=== PATIENT | male | born 1965 | race Caucasian/White ===

== ENCOUNTER 2022-03-29 01:55 | Observation (INO) | payer BC ==
--- NOTE | 2022-03-29 02:58 | ED ---
ENT HPI - General Chief complaint: ENT Stated complaint: ear pain Time Seen by Provider: 03/29/22 02:54 Source: patient, RN notes reviewed, old records reviewed Mode of arrival: ambulatory - History of Present Illness Initial comments: This is a 56-year-old male DF for evaluation. Patient presents with severe right ear pain. Patient is unable to hear out of his right ear with history of difficulty hearing out of both ears. Patient is been on different antibiotics and an outpatient basis with symptoms progressing severely. Patient states his symptoms just do not seem to be able to get better. Pain is getting worse. Although no fevers MD complaint: tooth pain, ear pain (left) -: days(s) Location: L ear Severity: severe Severity scale (1-10): 3 Quality: stabbing, aching, crushing, sharp Consistency: constant Improves with: none Worsens with: none Context- Ear: recent illness, recent swimming Associated Symptoms: fever - Related Data Home Medications Medication Instructions Recorded Confirmed Ascorbic Acid [Vitamin C] 1,000 mg PO DAILY 03/29/22 03/29/22 Cholecalciferol [Vitamin D3 (25 50 mcg PO DAILY 03/29/22 03/29/22 Mcg = 1000 Iu)] Cyanocobalamin (Vitamin B-12) 1,000 mcg PO DAILY 03/29/22 03/29/22 [Vitamin B-12] Glucos Sul 2Kcl/MSM/Chond/C/Mn 1 cap PO DAILY 03/29/22 03/29/22 [Glucosamine Chondroitin Cap] Hydrocortisone Cream 1 applic TOPICAL BID PRN 03/29/22 03/29/22 [Hydrocortisone 1% Cream] Multivitamins, Thera [Multivitamin 1 tab PO DAILY 03/29/22 03/29/22 (formulary)] Omeprazole Magnesium [PriLOSEC OTC] 20 mg PO DAILY 03/29/22 03/29/22 Pregabalin [Lyrica] 50 mg PO BID@1400,2100 03/29/22 03/29/22 Pregabalin [Lyrica] 100 mg PO DAILY@0700 03/29/22 03/29/22 Pyridoxine HCl (Vitamin B6) 100 mg PO DAILY 03/29/22 03/29/22 [Vitamin B-6] Simvastatin [Zocor] 40 mg PO HS 03/29/22 03/29/22 lisinopriL 40 mg PO DAILY 03/29/22 03/29/22 Previous Rx's Medication Instructions Recorded Canagliflozin [Invokana] 100 mg PO DAILY 30 Days #30 tab 03/31/22 Ciprofloxacin HCl [Cipro] 750 mg PO Q12H 14 Days #28 tab 03/31/22 Ciprofloxacin-Dexameth [Ciprodex 4 drops RIGHT EAR TID 14 Days #250 03/31/22 Otic Susp] ml Allergies Allergy/AdvReac Type Severity Reaction Status Date / Time No Known Allergies Allergy Verified 03/29/22 11:19 Review of Systems ROS Statement: Those systems with pertinent positive or pertinent negative responses have been documented in the HPI. ROS Other: All systems not noted in ROS Statement are negative. Past Medical History Past Medical History: Diabetes Mellitus, GERD/Reflux, Hyperlipidemia, Hypertension Additional Past Medical History / Comment(s): neuropathy History of Any Multi-Drug Resistant Organisms: None Reported Past Surgical History: No Surgical Hx Reported Past Psychological History: No Psychological Hx Reported Past Alcohol Use History: Daily Past Drug Use History: None Reported General Exam General appearance: alert, in no apparent distress Head exam: Present: atraumatic, normocephalic, normal inspection Eye exam: Present: normal appearance, PERRL, EOMI. Absent: scleral icterus, conjunctival injection, periorbital swelling ENT exam: Present: normal exam, mucous membranes moist Neck exam: Present: normal inspection. Absent: tenderness, meningismus, lymphadenopathy Respiratory exam: Present: normal lung sounds bilaterally. Absent: respiratory distress, wheezes, rales, rhonchi, stridor Cardiovascular Exam: Present: regular rate, normal rhythm, normal heart sounds. Absent: systolic murmur, diastolic murmur, rubs, gallop, clicks GI/Abdominal exam: Present: soft, normal bowel sounds. Absent: distended, tenderness, guarding, rebound, rigid Extremities exam: Present: normal inspection, full ROM, normal capillary refill. Absent: tenderness, pedal edema, joint swelling, calf tenderness Back exam: Present: normal inspection Neurological exam: Present: alert, oriented X3, CN II-XII intact Psychiatric exam: Present: normal affect, normal mood Skin exam: Present: warm, dry, intact, normal color. Absent: rash Course Vital Signs 03/29/22 03/29/22 02:07 06:52 Temperature 97.7 F 97.6 F Pulse Rate 79 Pulse Rate [ 75 Pulse Oximetery ] Respiratory 16 18 Rate Blood Pressure 152/91 Blood Pressure 170/91 [Right Arm] O2 Sat by Pulse 99 97 Oximetry - Reevaluation(s) Reevaluation #1: 03/29/22 Medical record is reviewed Patient symptoms are improved here in the ER Patient informed results and questions answered - Consultations Consultation #1: Spoke with ENT Dr. Ferreira who will see patient in the ER Consultation #2: Spoke with ag who agreed to admit the patient Medical Decision Making - Medical Decision Making 56 male with severe ear pain. Patient has significant otitis externa malignant. Patient is diabetic with place on antibiotics and will be admitted for ENT to evaluate - Lab Data Result diagrams: 03/30/22 05:51 03/30/22 05:51 Lab Results 03/29/22 03/29/22 03/29/22 Range/Units 04:23 04:23 04:23 WBC 7.4 (3.8-10.6) k/uL RBC 4.31 (4.30-5.90) m/uL Hgb 13.9 (13.0-17.5) gm/dL Hct 40.5 (39.0-53.0) % MCV 94.1 (80.0-100.0) fL MCH 32.2 (25.0-35.0) pg MCHC 34.2 (31.0-37.0) g/dL RDW 12.1 (11.5-15.5) % Plt Count 268 (150-450) k/uL MPV 8.4 Neutrophils % 47 % Lymphocytes % 41 % Monocytes % 5 % Eosinophils % 2 % Basophils % 1 % Neutrophils # 3.5 (1.3-7.7) k/uL Lymphocytes # 3.0 (1.0-4.8) k/uL Monocytes # 0.4 (0-1.0) k/uL Eosinophils # 0.2 (0-0.7) k/uL Basophils # 0.1 (0-0.2) k/uL ESR (0-15) mm/hr PT 10.4 (9.0-12.0) sec INR 1.0 (<1.2) APTT 24.9 (22.0-30.0) sec Sodium 140 (137-145) mmol/L Potassium 4.2 (3.5-5.1) mmol/L Chloride 106 (98-107) mmol/L Carbon Dioxide 25 (22-30) mmol/L Anion Gap 9 mmol/L BUN 19 (9-20) mg/dL Creatinine 0.89 (0.66-1.25) mg/dL Est GFR (CKD-EPI)AfAm >90 (>60 ml/min/1.73 sqM) Est GFR (CKD-EPI)NonAf >90 (>60 ml/min/1.73 sqM) Glucose 108 H (74-99) mg/dL Calcium 9.2 (8.4-10.2) mg/dL Total Bilirubin 0.3 (0.2-1.3) mg/dL AST 27 (17-59) U/L ALT 24 (4-49) U/L Alkaline Phosphatase 72 (38-126) U/L Troponin I (0.000-0.034) ng/mL C-Reactive Protein (<1.0) mg/dL Total Protein 6.7 (6.3-8.2) g/dL Albumin 4.5 (3.5-5.0) g/dL 03/29/22 03/29/22 03/29/22 Range/Units 04:23 04:23 04:23 WBC (3.8-10.6) k/uL RBC (4.30-5.90) m/uL Hgb (13.0-17.5) gm/dL Hct (39.0-53.0) % MCV (80.0-100.0) fL MCH (25.0-35.0) pg MCHC (31.0-37.0) g/dL RDW (11.5-15.5) % Plt Count (150-450) k/uL MPV Neutrophils % % Lymphocytes % % Monocytes % % Eosinophils % % Basophils % % Neutrophils # (1.3-7.7) k/uL Lymphocytes # (1.0-4.8) k/uL Monocytes # (0-1.0) k/uL Eosinophils # (0-0.7) k/uL Basophils # (0-0.2) k/uL ESR 10 (0-15) mm/hr PT (9.0-12.0) sec INR (<1.2) APTT (22.0-30.0) sec Sodium (137-145) mmol/L Potassium (3.5-5.1) mmol/L Chloride (98-107) mmol/L Carbon Dioxide (22-30) mmol/L Anion Gap mmol/L BUN (9-20) mg/dL Creatinine (0.66-1.25) mg/dL Est GFR (CKD-EPI)AfAm (>60 ml/min/1.73 sqM) Est GFR (CKD-EPI)NonAf (>60 ml/min/1.73 sqM) Glucose (74-99) mg/dL Calcium (8.4-10.2) mg/dL Total Bilirubin (0.2-1.3) mg/dL AST (17-59) U/L ALT (4-49) U/L Alkaline Phosphatase (38-126) U/L Troponin I <0.012 (0.000-0.034) ng/mL C-Reactive Protein 1.5 H (<1.0) mg/dL Total Protein (6.3-8.2) g/dL Albumin (3.5-5.0) g/dL Critical Care Time Critical Care Time: Yes Total Critical Care Time: 31 Disposition Clinical Impression: Otitis externa, Otitis media, Right otitis externa, Right otitis media, Malignant otitis externa Disposition: ADMITTED IP TO THIS HOSP Condition: Good Is patient prescribed a controlled substance at d/c from ED?: No Time of Disposition: 05:20
[2022-03-29] MEDS ORDERED: CIPROFLOXACIN-DEXAMETH 0.3-0.1% DROPS 7.5 ML BTL RIGHT EAR STA (03:26)
[2022-03-29] MEDS ORDERED: LEVOFLOXACIN 500MG-D5W PMX 500 MG in DEXTROSE/WATER 1 100ML.BAG IVPB STA (03:26)
[2022-03-29] MEDS ORDERED: PIPERACILLIN-TAZOBACTAM 3.375 GM in SODIUM CHLORIDE 0.9% 100 ML IVPB STA (03:26)
[2022-03-29] MEDS ORDERED: SODIUM CHLORIDE 0.9% 1,000 ML IV STA ×2 (03:26)
[2022-03-29 04:42] LABS: Basophils # (A) 0.1 k/uL (0-0.2); Basophils % (A) 1 %; Eosinophils # (A) 0.2 k/uL (0-0.7); Eosinophils % (A) 2 %; HCT 40.5 % (39.0-53.0); HGB 13.9 gm/dL (13.0-17.5); Lymphocytes % (A) 41 %; MCH 32.2 pg (25.0-35.0); MCHC 34.2 g/dL (31.0-37.0); MCV 94.1 fL (80.0-100.0); Mean Platelet Volume 8.4; Monocytes # (A) 0.4 k/uL (0-1.0); Monocytes % (A) 5 %; Neutrophils # (A) 3.5 k/uL (1.3-7.7); Neutrophils % (A) 47 %; Platelet Count 268 k/uL (150-450); RBC 4.31 m/uL (4.30-5.90); RDW 12.1 % (11.5-15.5); WBC 7.4 k/uL (3.8-10.6)
--- NOTE | 2022-03-29 04:43 | CT ---
EXAMINATION TYPE: CT iac wo con DATE OF EXAM: 03/29/2022 COMPARISON: CT brain 06/12/2019 HISTORY: Rt ear pain since last Friday CT DLP: 295.5 mGycm Automated exposure control for dose reduction was used. Images obtained from the mid temporal bones through the skull base without contrast. There is lumbarization of the mastoid sinuses. There is extensive opacification of the right external auditory canal. There is mucosal thickening to a mild extent in the middle ear cavity. There is some opacification of the epitympanic recess on the right side. There is opacification of the right exter nal auditory canal up to the tympanic membrane. I see no focal bone destruction. No evidence of a posterior fossa mass. Internal auditory canals are not enlarged. No sign of cerebellopontine angle mass. Temporomandibular joints are intact. IMPRESSION: There is significant opacification of the right external auditory canal which appears new compared to old exam. There is also new mucosal thickening in the middle ear cavity and this is consistent with otitis interna and otitis externa. No focal bone destruction. There is clearing of the mild sphenoid sinusitis compared to old exam.
[2022-03-29 04:54] LABS: ALT 24 U/L (4-49); AST 27 U/L (17-59); African American GFR (CKD) >90 (>60 ml/min/1.73 sqM); Albumin 4.5 g/dL (3.5-5.0); Alkaline Phosphatase 72 U/L (38-126); Anion Gap 9 mmol/L; Blood Urea Nitrogen 19 mg/dL (9-20); Calcium 9.2 mg/dL (8.4-10.2); Carbon Dioxide 25 mmol/L (22-30); Chloride 106 mmol/L (98-107); Glucose 108 mg/dL (74-99); Non-African American GFR(CKD) >90 (>60 ml/min/1.73 sqM); Potassium 4.2 mmol/L (3.5-5.1); Sodium 140 mmol/L (137-145); Total Bilirubin 0.3 mg/dL (0.2-1.3); Total Protein 6.7 g/dL (6.3-8.2)
[2022-03-29 04:57] LABS: Partial Thromboplastin Time 24.9 sec (22.0-30.0); Prothrombin Time 10.4 sec (9.0-12.0)
[2022-03-29] MEDS ORDERED: MORPHINE SULFATE 4 MG/ML SYRINGE IV PRN (05:10)
[2022-03-29] MEDS ORDERED: MORPHINE SULFATE 4 MG/ML SYRINGE IVP STA (05:10)
[2022-03-29] MEDS ORDERED: NALOXONE 0.4 MG/ML 1 ML VIAL IV PRN ×2 (05:12→15:29)
[2022-03-29] MEDS ORDERED: ONDANSETRON 4 MG/2 ML VIAL IVP PRN (05:12)
--- NOTE | 2022-03-29 09:57 | P.HPIM ---
History of Present Illness H&P Date: 03/29/22 Chief Complaint: earache 56-year-old male with history of hearing loss, diabetes type 2, peripheral neuropathy, hypertension and hyperlipidemia presented to the emergency depa rtment because of a one-week history of worsening right ear pain. He normally wears hearing aids and without them he only has 10% of his hearing. States he can't hear anything out of his right ear. Also noticed minimal drainage from the right ear. Denied fevers or chills. He had a zoom appointment with his PCP who prescribed an antibiotic for him which he took but his symptoms got worse. No nausea or vomiting or other systemic symptoms. This did not happen in the past to him. In the ER all his labs were ok. He was not febrile. Had CT of the ear which showed new significant opacification of the right external auditory canal as well as new mucosal thickening in the middle ear cavity. He was started on zosyn and levaquin and was subsequently admitted. Review of Systems Complete review of system performed pertinent positives per HPI otherwise negative. Past Medical History Past Medical History: Diabetes Mellitus, GERD/Reflux, Hyperlipidemia, Hypertension Additional Past Medical History / Comment(s): neuropathy History of Any Multi-Drug Resistant Organisms: None Reported Past Surgical History: No Surgical Hx Reported Past Psychological History: No Psychological Hx Reported Past Alcohol Use History: Daily Past Drug Use History: None Reported Medications and Allergies Home Medications Medication Instructions Recorded Confirmed Type Amoxicillin/Potassium Clav 1 each PO Q12HR #20 tab 06/12/19 Rx [Augmentin 875-125 Tablet] Allergies Allergy/AdvReac Type Severity Reaction Status Date / Time No Known Allergies Allergy Verified 03/29/22 02:10 Physical Exam Vitals: Vital Signs Temp Pulse Pulse Resp BP BP Pulse Ox 03/29/22 06:52 97.6 F 75 18 170/91 97 03/29/22 02:07 97.7 F 79 16 152/91 99 Intake and Output 03/28/22 03/29/22 03/29/22 22:59 06:59 14:59 Intake Total 480 Balance 480 Intake: Oral 480 Other: # Voids 1 Weight 108.862 kg Constitutional: No acute distress, conversant, pleasant Eyes:Anicteric sclerae, moist conjunctiva, no lid-lag, PERRLA, ENMT: There is erythema and yellow drainage noted in the right ear canal. Oropharynx clear, no erythema, exudates Neck: Supple, FROM, no masses, or JVD, No carotid bruits, No thyromegaly Lungs: Clear to auscultation, Clear to percussion, Normal respiratory effort, no accessory muscle use Cardiovascular: Heart regular in rate and rhythm, No murmurs, gallops, or rubs, No peripheral edema Abdominal: Soft, Nontender, no guarding, rebound or rigidity, Normoactive bowel sounds, No hepatomegaly, No splenomegaly, No palpable mass Skin: Normal temperature, tone, texture, turgor, no induration, No subcutaneous nodules, No rash, lesions, No ulcers Extremities: No digital cyanosis, No clubbing, Pedal pulses intact and symmetrical, Radial pulses intact and symmetrical, No calf tenderness Psychiatric: Alert and oriented to person, place and time, appropriate affect, intact judgement Neuro: Muscles Strength 5/5 in all 4 extremities, Sensation to light touch grossly present throughout, Cranial nerves II-XII grossly intact, no focal sensory deficits Results CBC & Chem 7: 03/29/22 04:23 03/29/22 04:23 Labs: Abnormal Lab Results - Last 24 Hours (Table) 03/29/22 03/29/22 Range/Units 04:23 04:23 Glucose 108 H (74-99) mg/dL C-Reactive Protein 1.5 H (<1.0) mg/dL Assessment and Plan Plan: Right otitis externa Right otitis media Continue with zosyn and levaquin IV fluids Pain control with tylenol, toradol and opiates DM2 Hold metformin SSI with blood sugars check every before meals and at bedtime Chronic Hypertension Peripheral neuropathy Hyperlipidemia All stable Resume meds Admit to inpatient, expected length of stay more than 2 midnights
[2022-03-29] MEDS ORDERED: ACETAMINOPHEN TAB 325 MG TAB PO SCH (10:00)
[2022-03-29] MEDS: KETOROLAC 15 MG/ML 1 ML VIAL IVP SCH ×3 (10:26→22:10)
[2022-03-29] MEDS: PIPERACILLIN-TAZOBACTAM 3.375 GM in SODIUM CHLORIDE 0.9% 100 ML IVPB SCH ×2 (10:27→20:35)
[2022-03-29] MEDS ORDERED: DEXTROSE 50% SYRINGE 50 ML IVP PRN ×2 (12:00)
[2022-03-29] MEDS: lisinopriL 20 MG TAB PO SCH (12:08)
[2022-03-29] MEDS ORDERED: INSULIN ASPART (NovoLOG) 100 UNIT/ML VIAL SQ SCH (12:30)
[2022-03-29] MEDS: INSULIN ASPART (NovoLOG) 100 UNIT/ML VIAL SQ SCH ×3 (13:26→21:07)
[2022-03-29] MEDS: PREGABALIN 50 MG CAP PO SCH ×2 (14:14→20:36)
[2022-03-29] MEDS ORDERED: TEMAZEPAM 30 MG CAP PO PRN (15:28)
[2022-03-29] MEDS: CIPROFLOXACIN-DEXAMETH 0.3-0.1% DROPS 7.5 ML BTL RIGHT EAR SCH ×2 (15:49→22:10)
[2022-03-29] MEDS: HYDROmorphone PCA 10 MG/50 ML BAG IV PRN (17:09)
[2022-03-29 17:53] LABS: Glucose,Whole Blood 141 mg/dL (70-110)
[2022-03-29] MEDS: ACETAMINOPHEN IV (For NPO) 1,000 MG in EMPTY BAG 1 BAG IVPB SCH (18:19)
[2022-03-29] MEDS: ATORVASTATIN 20 MG TAB PO SCH (20:36)
[2022-03-29 20:45] LABS: Glucose,Whole Blood 147 mg/dL (70-110)
[2022-03-29] MEDS: TEMAZEPAM 15 MG CAP PO PRN (22:46)
[2022-03-30] MEDS: ACETAMINOPHEN IV (For NPO) 1,000 MG in EMPTY BAG 1 BAG IVPB SCH ×3 (00:38→12:00)
--- NOTE | 2022-03-30 03:00 | CONS ---
CONSULTATION REASON FOR CONSULTATION: Severe right ear pain. HISTORY OF PRESENT ILLNESS: This patient is a very pleasant 56-year-old male who was recently admitted to [facility] via the emergency room department. The patient states that approximately 1 week prior to his admission, he developed significant progressive pain in his right ear. Eventually, the pain began to radiate down into the right side of his neck. He also states that there was pain behind the right ear. He noticed only a small amount of drainage from the right ear. The pain is not worse at during the night hours. He relates that the ear was not tender to touch. The patient wears bilateral hearing aids because he has a bilateral sensorineural hearing loss. He has not been able to wear the hearing aid in the right ear because of the discomfort associated with the right ear pain. He was told by an talent manager that he has only about 10% to 15% hearing in the right ear. This patient's bilateral hearing loss has been a gradual issue secondary to noise exposure over the years. The patient denies a history of recurrent ear infections in the past. He admits to frequent use of Q-tips to clean his ears. I advised the patient that he should never use Q-tips to clean the ears because it disrupts the natural protective barrier provided by the cerumen. I demonstrated to the patient the proper way to clean his ears safely. I also discussed with the patient that most likely the issues that he is having now is secondary to micro-trauma caused by the use of Q-tips. The patient denies any itching of either ear. I was notified at 5 a.m. on 03/29/2022 by the emergency room department physician, Dr. Mattson, that the patient was in the emergency room and complaining of severe right ear pain. The patient stated that he spoke with his primary care physician via telemedicine and that he was initially placed on amoxicillin oral antibiotic. He took this for several days and did not notice any significant improvement. He therefore reached out to his primary care doctor via telemedicine once again. At this time, without seeing the patient, the patient's medication was changed to doxycycline. This antibiotic also did not seem to help. In addition, his primary care doctor did not make a follow-up visit with him. I advised the patient that certainly this type of condition which had not improve require that he be seen by his primary care doctor to develop a definitive diagnosis and treatment plan. He now presents at [facility] Emergency Room with all of the above complaints. The emergency room physician stated that the patient had undergone a CT scan which showed significant opacification, soft tissue swelling of the external auditory canal with slight mucosal thickening of the middle ear space. There was little or no involvement of the mastoid air cells on the right side. There was no evidence of any bone necrosis. The patient's CBC and ESR (sedimentation rate) were completely normal. The patient was afebrile. The emergency room physician stated that he saw quite a bit of debris and drainage in the right external auditory canal, but the canal or the meatus were not swollen or tender to insertion of the aural speculum. Based upon the information relayed to me, I advised the ER physician that it would be best to admit this patient for definitive treatment. The ER physician was concerned that the patient might possibly have malignant (necrotizing) external otitis. This is a fairly rare condition and can be seen in type 1 or type 2 diabetic and it is not related to the issue of blood sugar control. However, it tends to be seen more in a much older population than this current patient. Although the patient's ear pain was severe, many of his clinical findings such as normal white count, normal sedimentation rate, CT findings, and no ear pain to palpation suggested against that diagnosis. However, I advised the ER physician to admit the patient, place him on the appropriate antibiotics, which would include either a third generation cephalosporin such as Fortaz, a quinolone such as Cipro IV, and Zosyn which is considered the standard of care for malignant external otitis which is actually a osteomyelitis of the temporal bone. To err on the safe side, I felt that we should treat this patient as if he did in fact have malignant external otitis until further details could be determined. The patient was therefore admitted and I advised Dr. Mattson to write on the chart that I would see the patient later on in the day, most likely in the afternoon on 03/29/2022 which is the day of his admission,This was to avoid being called again by the nursing staff regarding the consult. . Unfortunately, despite having been called at 5 a.m. in the morning, I was called again shortly after 9 a.m. to remind me of the consultation. I am not quite sure why this occurred nor what purpose it was supposed to serve since I had already advised the emergency room staff that I was coming in to see the patient later that afternoon. At this time, the patient is alert and is in no acute distress. He is experiencing moderate pain in the right ear. He was ordered tramadol for his pain. PAST MEDICAL HISTORY: Reveals the patient has no known allergies to medications. MEDICATIONS: His most recent medication was doxycycline capsules. His current home medications include, 1. Prilosec. 2. Lyrica. 3. Metformin. 4. Lisinopril. 5. Zocor. 6. Multiple vitamins. 7. [id number] herbal medications. SOCIAL HISTORY: He is a nonsmoker. PAST SURGICAL HISTORY: He does not have a history of any previous ear surgery. REVIEW OF SYSTEMS: CARDIOVASCULAR: Positive with respect to cardiovascular system for hypertension. GASTROINTESTINAL SYSTEM: Positive for GERD (gastroesophageal reflux disorder). METABOLIC/ENDOCRINE SYSTEM: Positive for hypercholesterolemia and type 2 diabetes mellitus. The remainder of the review of systems is essentially unremarkable. PHYSICAL EXAMINATION: GENERAL: The patient is a very pleasant 56-year-old male who was alert, cooperative,afebrile, and is in no acute distress at this time. HEENT: The patient is normocephalic. Examination of left ear reveals left external auditory canal skin, after the patient removed his hearing aid, is noted to be quite dry and,scaly with minimal cerumen present. The left tympanic membrane middle ear space is free of any fluid or infection. The skin of the left external auditory canal is unremarkable. Examination of the right ear reveals that the auricle/pinna is completely unremarkable. Palpation of the right tragus does not elicit any pain whatsoever. Pulling on the patient's right ear posteriorly does not elicit any significant pain. There is mild-to- moderate postauricular pain on deep palpation. However, there is no evidence any fluctuance or puffiness in the right postauricular area. There is no tenderness on insertion of the otoscope into the right external auditory canal. I observed that there was significant debris and purulent material in the canal distally. There was no cerumen present and the canal skin was scaly proximally. Near the junction of the cartilage of the external auditory canal and the bony canal there may be a small polypoid lesion present. It is difficult to determine whether this is actually a polypoid lesion as opposed to simply swelling of the canal skin. I am not able to see the patient's right tympanic membrane because of the purulent material and swelling of the canal skin. I allowed the RN, who was present in the room, to observe what I had seen in the patient's right external auditory canal. Pupils are equal, round, react to light and accommodation. Extraocular movements within normal limits. Intranasal examination reveals moderate to severe septal deviation to the left with bilateral compensatory hypertrophy inferior turbinates. There is a moderate amount of clear mucus on the mucous membranes and draining down the posterior pharynx. Examination of oropharynx is unremarkable. Palpation of the neck is negative for any neck masses or lymphadenopathy. It is important to note that all cranial nerves were within normal limits and there was no evidence of any cranial nerve deficits, particularly on the right side. This is important. In addition to this, there was no exacerbation of the patient's right ear pain on opening or closing of the mouth. Remainder of the head and neck exam is unremarkable. CARDIOVASCULAR: Both lung cintron are clear to percussion and auscultation. Patient is in regular sinus rhythm. S1 and S2 are present without any murmurs, S3s or S4s. Peripheral pulses are bilaterally symmetrical. ABDOMEN: No evidence of any masses, megaly or tenderness. Abdomen is soft. The remainder of physical exam is unremarkable. IMPRESSION: 1. Severe right otalgia. 2. Severe right external otitis. 3. Right acute otitis media. 4. Right postauricular pain. 5. 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 Right otorrhea. PLAN: This is an interesting case. Unfortunately, I suspect that had this patient been actually seen in person an earlier diagnosis would have been obtained and the patient would have received the appropriate treatment. Fortunately, his symptoms have not been going on for long. We suspect malignant or necrotizing external otitis, this is commonly seen in diabetic patients, both type 1 and type 2. It is not related to the level of control of blood sugar. It is related to the micro angio pathology associated with diabetes mellitus. This can all be exacerbated by patients cleaning their ears frequently or even infrequently with Q-tips. The use of the Q-tips tends to traumatize the skin of the ear and eventually the wax glands will stop making functional wax/cerumen. As you know, this cerumen serves many functions as far as waterproofing the air, and keeping the canal skin moist . It is fairly effective in keeping the normal aracelis of the ear in check which include staph, Pseudomonas, etc. Once the wax barrier is removed, continued use with Q-tips will cause micro-abrasions which allows the local bacteria to invade the soft tissues enter the temporal bone via the fissures of Tushar . I reviewed the patient's CT scan and observe the soft tissue edema/opacification of the external auditory canal, some slight opacification of the attic of the middle ear space and the slight thickening of the mucosa of the right middle ear space. There did not appear to be any fluid in the right middle ear space. However, I do not observe any necrosis of bone. With malignant external otitis, necrosis of the bone may be a later development. Certainly since this patient has only had his symptoms for only 1 week it is quite possible that his disease is at a very early clinical stage. If that is the case, this should respond well to the current antibiotic regimen. Again, at this point I cannot definitively say that this is malignant external otitis. All of the clinical parameters would seem to suggest that it is not. The patient has normal white blood cell count, normal sedimentation rate, afebrile, minimal ear drainage, no tenderness to palpation of the ear or the tragus of the ear, etc. However, once again, it may be that we are in the early stage of his disease. I discussed the patient's symptoms and my diagnosis with the patient. I would like to get a Infectious Disease consultation. Certainly, if this patient responds well to the current antibiotic treatment, it is quite possible that he could be discharged in the very near future on oral antibiotics and thus avoid having to have to go home with a PIC line. The oral antibiotic of choice would be Cipro 750 mg b.i.d. for approximately 2 weeks. I would follow up on this patient 1 week after he is discharged from the hospital and then every couple of weeks thereafter. While the patient is in the hospital, I will see him on a daily basis and monitor his condition. Certainly, the Infectious Disease Service may decide to alter his antibiotic regimen and I would defer that decision . I want to take this opportunity to thank you for allowing me to assist in the care of your patient. If I could be of any further assistance, please feel free to call my office. I will see this patient on a daily basis while he is in the hospital and I will dictate daily progress notes. I spent approximately 45 minutes with the patient. CHAI / BRIAN: [id number] / MTDD
[2022-03-30] MEDS: KETOROLAC 15 MG/ML 1 ML VIAL IVP SCH ×4 (04:23→21:16)
[2022-03-30] MEDS: PIPERACILLIN-TAZOBACTAM 3.375 GM in SODIUM CHLORIDE 0.9% 100 ML IVPB SCH ×3 (04:23→21:16)
[2022-03-30] MEDS: PANTOPRAZOLE 40 MG TABLET PO SCH (05:56)
[2022-03-30] MEDS: PREGABALIN 100 MG CAP PO SCH (05:56)
[2022-03-30] MEDS ORDERED: LEVOFLOXACIN 500MG-D5W PMX 500 MG in DEXTROSE/WATER 1 100ML.BAG IVPB SCH (06:00)
[2022-03-30 07:19] LABS: Glucose,Whole Blood 116 mg/dL (70-110)
[2022-03-30] MEDS: INSULIN ASPART (NovoLOG) 100 UNIT/ML VIAL SQ SCH ×4 (08:22→21:13)
[2022-03-30 08:56] LABS: Basophils # (A) 0.05 X 10*3/uL (0.00-0.10); Basophils % (A) 0.8 %; Eosinophils # (A) 0.15 X 10*3/uL (0.04-0.35); Eosinophils % (A) 2.3 %; HCT 37.8 % (39.6-50.0); HGB 12.4 g/dL (13.0-17.0); Immature Grans, Automated 0.2 %; Lymphocytes # (A) 3.52 X 10*3/uL (0.90-5.00); Lymphocytes % (A) 53.3 %; MCH 31.7 pg (27.0-32.0); MCHC 32.8 g/dL (32.0-37.0); MCV 96.7 fL (80.0-97.0); Mean Platelet Volume 10.2 fL (9.5-12.2); Monocytes % (A) 7.6 %; NRBC Per 100 WBC 0 /100 WBCS (0.0-0.0); Neutrophils # (A) 2.38 X 10*3/uL (1.80-7.70); Neutrophils % (A) 35.8 %; Platelet Count 231 X 10*3/uL (140-440); RBC 3.91 X 10*6/uL (4.40-5.60); RDW 11.9 % (11.5-14.5); WBC 6.61 X 10*3/uL (4.50-10.00)
[2022-03-30] MEDS: CIPROFLOXACIN-DEXAMETH 0.3-0.1% DROPS 7.5 ML BTL RIGHT EAR SCH ×3 (09:27→21:17)
[2022-03-30] MEDS: LEVOFLOXACIN 500MG-D5W PMX 500 MG in DEXTROSE/WATER 1 100ML.BAG IVPB SCH (09:29)
[2022-03-30] MEDS: lisinopriL 20 MG TAB PO SCH (09:29)
[2022-03-30 09:42] LABS: African American GFR (CKD) 110.3 (60.0-200.0); Albumin 3.8 g/dL (3.8-4.9); Albumin/Globulin Ratio 2.11 (1.60-3.17); Anion Gap 10.9 mmol/L (10.00-18.00); BUN/Creat Ratio 12.11 Ratio (12.00-20.00); Blood Urea Nitrogen 10.9 mg/dL (9.0-27.0); Calcium 8.8 mg/dL (8.7-10.3); Carbon Dioxide 23.1 mmol/L (20.0-27.5); Globulin 1.8 g/dL (1.6-3.3); Magnesium 1.9 mg/dL (1.5-2.4); Non-African American GFR(CKD) 95.1 (60.0-200.0); Phosphorus 2.6 mg/dL (2.4-5.1); Potassium 3.8 mmol/L (3.5-5.5); Total Bilirubin 0.6 mg/dL (0.30-1.20); Total Protein 5.6 g/dL (6.2-8.2)
--- NOTE | 2022-03-30 11:24 | P.PN ---
Subjective Progress Note Date: 03/30/22 Principal diagnosis: Right ear pain Pain in his right ear is better controlled, he was started on dilaudid IMPORT CLERK by ENT yesterday. No n/v. No fevers. No chills. Still having drainage out of the RIGHT ear. Objective - Vital Signs Vital signs: Vital Signs Temp 97.9 F 03/30/22 07:00 Pulse 63 03/30/22 07:00 Resp 16 03/30/22 07:00 BP 163/88 03/30/22 07:00 Pulse Ox 95 03/30/22 07:00 FiO2 Intake & Output 03/29/22 03/30/22 03/30/22 18:59 06:59 18:59 Intake Total 960 118 Balance 960 118 Weight 108.862 kg Intake: Oral 960 118 Other: # Voids 2 2 - Exam Constitutional: No acute distress, conversant, pleasant Eyes:Anicteric sclerae, moist conjunctiva, no lid-lag, PERRLA, ENMT: There is erythema and yellow drainage noted in the right ear canal. Oropharynx clear, no erythema, exudates Neck: Supple, FROM, no masses, or JVD, No carotid bruits, No thyromegaly Lungs: Clear to auscultation, Clear to percussion, Normal respiratory effort, no accessory muscle use Cardiovascular: Heart regular in rate and rhythm, No murmurs, gallops, or rubs, No peripheral edema Abdominal: Soft, Nontender, no guarding, rebound or rigidity, Normoactive bowel sounds, No hepatomegaly, No splenomegaly, No palpable mass Skin: Normal temperature, tone, texture, turgor, no induration, No subcutaneous nodules, No rash, lesions, No ulcers Extremities: No digital cyanosis, No clubbing, Pedal pulses intact and symmetrical, Radial pulses intact and symmetrical, No calf tenderness Psychiatric: Alert and oriented to person, place and time, appropriate affect, intact judgement Neuro: Muscles Strength 5/5 in all 4 extremities, Sensation to light touch grossly present throughout, Cranial nerves II-XII grossly intact, no focal se nsory deficits - Labs CBC & Chem 7: 03/30/22 05:51 03/30/22 05:51 Labs: Abnormal Lab Results - Last 24 Hours (Table) 03/29/22 03/29/22 03/30/22 Range/Units 17:52 20:44 05:51 RBC (4.40-5.60) X 10*6/uL Hgb (13.0-17.0) g/dL Hct (39.6-50.0) % Glucose (70-110) mg/dL POC Glucose (mg/dL) 141 H 147 H (70-110) mg/dL Hemoglobin A1c 6.5 H (0.0-6.0) % Total Protein (6.2-8.2) g/dL 03/30/22 03/30/22 03/30/22 Range/Units 05:51 05:51 07:17 RBC 3.91 L (4.40-5.60) X 10*6/uL Hgb 12.4 L (13.0-17.0) g/dL Hct 37.8 L (39.6-50.0) % Glucose 130 H (70-110) mg/dL POC Glucose (mg/dL) 116 H (70-110) mg/dL Hemoglobin A1c (0.0-6.0) % Total Protein 5.6 L (6.2-8.2) g/dL Microbiology - Last 24 Hours (Table) 03/29/22 04:23 Blood Culture - Preliminary Blood No Growth after 24 hours Assessment and Plan Plan: Right otitis externa Right otitis media Patient was seen by ENT Continue with zosyn and levaquin, consult ID IV fluids Pain control with dilaudid IMPORT CLERK, tylenol, toradol DM2 Hold metformin SSI with blood sugars check every before meals and at bedtime Chronic Hypertension Peripheral neuropathy Hyperlipidemia All stable Resume meds
[2022-03-30 12:11] LABS: Glucose,Whole Blood 119 mg/dL (70-110)
[2022-03-30] MEDS: PREGABALIN 50 MG CAP PO SCH ×2 (13:40→21:16)
[2022-03-30] MEDS: HYDROmorphone PCA 10 MG/50 ML BAG IV PRN (13:53)
[2022-03-30 17:17] LABS: Glucose,Whole Blood 105 mg/dL (70-110)
[2022-03-30 21:04] LABS: Glucose,Whole Blood 131 mg/dL (70-110)
[2022-03-30] MEDS: ATORVASTATIN 20 MG TAB PO SCH (21:16)
[2022-03-30] MEDS: TEMAZEPAM 15 MG CAP PO PRN (21:17)
--- NOTE | 2022-03-31 01:06 | PN ---
PROGRESS NOTE DATE OF SERVICE: 03/30/2022 SUBJECTIVE: Vital signs stable. The patient states that he feels much better compared to when he was admitted. That is to say, he feels that the right ear pain has markedly decreased. He is no longer experiencing severe right postauricular ear pain either. He states that there is some drainage from the right ear. 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 OBJECTIVE: HEENT: The patient is normocephalic. Examination of the patient's right ear reveals that there is no swelling at the meatus. There is no tenderness at the tragus of the right ear. Examination of the ear with otoscope reveals no tenderness to insertion of the otoscope. There is drainage in the right ear and the swelling of the canal skin has decreased by at least 60% or more. I am able to now see a small portion of the patient's right tympanic membrane. The previously noted area that I felt might have been a polyp appears to have been simply swelling of the soft tissue/skin of the right ear canal. Deep palpation of the right postauricular area does not elicit any pain unlike on his previous exam. The remainder of the head and neck exam and physical exam is essentially unchanged since his last examination. ASSESSMENT: 1. Severe right ear pain. 2. malignant right external otitis versus severe right external otitis, right otorrhea. PLAN: We will continue with the current course of IV antibiotics. I have canceled the Infectious Disease consult that I originally placed yesterday. The patient seems to be improving significantly. I discussed with the patient the possibility of him being able to go home tomorrow, assuming this is okay with the hospitalist physicians who were also caring for him here in the hospital. I advised the patient that when he goes home, I plan to place him on Cipro 750 mg t.i.d., #28 tablets for 2-week period. He will also be on Ciprodex ear drops, 4 drops in the right ear 3 times daily until it is gone. We will give him a mild pain medication use on as needed basis or he may use [id number]-[id number] ibuprofen. I will see the patient in my office for a followup on the after his discharge. He has been given my business card and has been advised to call the office on Friday (assuming he is discharged on Friday). The plan is that as long as the patient continues to improve, then I see no reason that the patient needs to be on any further intravenous antibiotics. However, he and his and myself agree that if his condition should change, he certainly could always be readmitted for more intensive treatment. At this point, I feel he will do well on the Cipro for 2 weeks with close followup. I will see the patient sometime tomorrow afternoon and after an examination, make a decision whether or not he is a candidate for discharge. CHAI / BRIAN: [id number] / MTDJocelyn
[2022-03-31] MEDS: KETOROLAC 15 MG/ML 1 ML VIAL IVP SCH ×2 (03:20→09:39)
[2022-03-31] MEDS: PIPERACILLIN-TAZOBACTAM 3.375 GM in SODIUM CHLORIDE 0.9% 100 ML IVPB SCH ×2 (03:21→12:58)
[2022-03-31] MEDS: PREGABALIN 100 MG CAP PO SCH (06:21)
[2022-03-31 06:22] LABS: Glucose,Whole Blood 110 mg/dL (70-110)
[2022-03-31] MEDS: INSULIN ASPART (NovoLOG) 100 UNIT/ML VIAL SQ SCH ×2 (06:22→12:00)
[2022-03-31] MEDS: PANTOPRAZOLE 40 MG TABLET PO SCH (06:22)
[2022-03-31] MEDS: lisinopriL 20 MG TAB PO SCH (09:38)
[2022-03-31] MEDS: HYDROmorphone PCA 10 MG/50 ML BAG IV PRN (09:39)
[2022-03-31] MEDS: LEVOFLOXACIN 500MG-D5W PMX 500 MG in DEXTROSE/WATER 1 100ML.BAG IVPB SCH (09:39)
[2022-03-31] MEDS: CIPROFLOXACIN-DEXAMETH 0.3-0.1% DROPS 7.5 ML BTL RIGHT EAR SCH (09:59)
--- NOTE | 2022-03-31 11:25 | P.DS ---
Providers Date of admission: 03/29/22 05:12 Expected date of discharge: 03/31/22 Attending physician: Jimmy Kothari MD Consults: 03/29/22 05:14 Consult Physician Routine Consulting Provider: Ayaan Ferreira Consult Reason/Comments: R ear Do you want consulting provider notified?: Yes Primary care physician: [facility] Course: 56-year-old male with history of hearing loss, diabetes type 2, peripheral neuropathy, hypertension and hyperlipidemia presented to the emergency department because of a one-week history of worsening right ear pain. He normally wears hearing aids and without them he only has 10% of his hearing. States he can't hear anything out of his right ear. Also noticed minimal drainage from the right ear. Denied fevers or chills. He had a zoom appointment with his PCP who prescribed an antibiotic for him which he took but his symptoms got worse. No nausea or vomiting or other systemic symptoms. This did not happen in the past to him. In the ER all his labs were ok. He was not febrile. Had CT of the ear which showed new significant opacification of the right external auditory canal as well as new mucosal thickening in the middle ear cavity. He was started on zosyn and levaquin and was subsequently admitted. Patient was seen by ENT upon admission, Ciprodex eardrops ordered as well. 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 He eventually felt better, the drainage and yellowish purulent material coming out from the ear was decreasing. He is a known type II diabetic, was on metformin prior to admission, his A1c came back at 6.5. Metformin will be discontinued upon discharge, and invokana will be prescribed instead. He was cleared by ENT for discharge. He will be discharged home in a stable condition. Patient was seen and examined on the day of discharge 03/31. Time for discharge 35 minutes. Patient Condition at Discharge: Good Plan - Discharge Summary Discharge Rx Participant: Yes New Discharge Prescriptions: New Ciprofloxacin-Dexameth [Ciprodex Otic Susp] 4 drops RIGHT EAR TID 14 Days #250 ml Ciprofloxacin HCl [Cipro] 750 mg PO Q12H 14 Days #28 tab Canagliflozin [Invokana] 100 mg PO DAILY 30 Days #30 tab Continue Multivitamins, Thera [Multivitamin (formulary)] 1 tab PO DAILY Cyanocobalamin (Vitamin B-12) [Vitamin B-12] 1,000 mcg PO DAILY lisinopriL 40 mg PO DAILY Simvastatin [Zocor] 40 mg PO HS Glucos Sul 2Kcl/MSM/Chond/C/Mn [Glucosamine Chondroitin Cap] 1 cap PO DAILY Ascorbic Acid [Vitamin C] 1,000 mg PO DAILY Pyridoxine HCl (Vitamin B6) [Vitamin B-6] 100 mg PO DAILY Cholecalciferol [Vitamin D3 (25 Mcg = 1000 Iu)] 50 mcg PO DAILY Omeprazole Magnesium [PriLOSEC OTC] 20 mg PO DAILY Hydrocortisone Cream [Hydrocortisone 1% Cream] 1 applic TOPICAL BID PRN PRN Reason: Rash Pregabalin [Lyrica] 100 mg PO DAILY@0700 Pregabalin [Lyrica] 50 mg PO BID@1399,2099 Discontinued Doxycycline Hyclate 100 mg PO BID metFORMIN HCL ER [Glucophage XR] 500 mg PO BID Discharge Medication List Ascorbic Acid [Vitamin C] 1,000 mg PO DAILY 03/29/22 [History] Cholecalciferol [Vitamin D3 (25 Mcg = 1000 Iu)] 50 mcg PO DAILY 03/29/22 [History] Cyanocobalamin (Vitamin B-12) [Vitamin B-12] 1,000 mcg PO DAILY 03/29/22 [History] Glucos Sul 2Kcl/MSM/Chond/C/Mn [Glucosamine Chondroitin Cap] 1 cap PO DAILY 03/29/22 [History] Hydrocortisone Cream [Hydrocortisone 1% Cream] 1 applic TOPICAL BID PRN 03/29/22 [History] Multivitamins, Thera [Multivitamin (formulary)] 1 tab PO DAILY 03/29/22 [History] Omeprazole Magnesium [PriLOSEC OTC] 20 mg PO DAILY 03/29/22 [History] Pregabalin [Lyrica] 50 mg PO BID@1400,2100 03/29/22 [History] Pregabalin [Lyrica] 100 mg PO DAILY@0700 03/29/22 [History] Pyridoxine HCl (Vitamin B6) [Vitamin B-6] 100 mg PO DAILY 03/29/22 [History] Simvastatin [Zocor] 40 mg PO HS 03/29/22 [History] lisinopriL 40 mg PO DAILY 03/29/22 [History] Canagliflozin [Invokana] 100 mg PO DAILY 30 Days #30 tab 03/31/22 [Rx] Ciprofloxacin HCl [Cipro] 750 mg PO Q12H 14 Days #28 tab 03/31/22 [Rx] Ciprofloxacin-Dexameth [Ciprodex Otic Susp] 4 drops RIGHT EAR TID 14 Days #250 ml 03/31/22 [Rx] Follow up Appointment(s)/Referral(s): None,Stated [REFERRING] - 1-2 days Ayaan Ferreira MD [STAFF PHYSICIAN] - 1 Week Activity/Diet/Wound Care/Special Instructions: ENT/Dr. Ferreira's discharge instructions only: 1. Please carefully read/review all discharge instructions. You may resume all normal activities, work, a normal diet, and all previous medications that you were using at home. It is okay to shower, shampoo your hair, and take baths. You do not have to be concerned about getting water in your right ear. 2. It will be normal for your ear to continue to drain for at least the next several days. Do not ever use Q- tips, peroxide, alcohol, or earwax removal drops to clean your ears. The safest way to clean your ears is to use your index finger and a soapy, cotton, washcloth during your shower or bath. If you feel your ears need to be cleaned then you should make an appointment with Dr. Ferreira's office. Also, in the future I would advise against allowing anyone to flush or irrigate your ears with any type of solution because this may cause a recurrence of your current infection. 3. You will be given two prescriptions which you should have filled. One prescription will be for the antibiotic Cipro tablets 750 mg, which you should take, as prescribed, beginning on the evening after your arrival at home and continuing to take twice daily until it is completely gone. It is recommended that you take this medication with food. The second prescription will be for a pain tablet, [place] 5/325 mg, which you should take, as prescribed, for pain as needed. You may also take the [id number] pain reliever ibuprofen in place of the [place] tablets if you desire. However, if you're taking the [place] tablets do not take Tylenol tablets. You will also he will also be given the remaining Ciprodex suspension from your hospital stay and you should use 4 drops in the right ear 3 times daily until it is completely gone. After instilling the eardrops in your right ear please place a cottonball in that ear for at least 5 or 10 minutes to absorb any excess medication. Also, if you find that the right ear is draining significantly you may use a dry cottonball in the ear on as needed basis. 4. You should call Dr. Ferreira's office on 04/01/2022 and make an appointment to be seen for a follow-up visit on (04/04/22).
[2022-03-31 11:39] LABS: Glucose,Whole Blood 109 mg/dL (70-110)
[2022-03-31 13:06] VITALS: BP 169/81; PULSE 67; RESP 18; TEMP 98.2
--- NOTE | 2022-04-01 03:53 | PN ---
PROGRESS NOTE DATE OF SERVICE: 03/31/2022 SUBJECTIVE: Vital signs are stable. The patient continues to improve. He is having minimal pain at this time. He has rarely used the [employer] pump or requested any oral pain medication. The right ear which had previously been noted to be draining has only drained a small amount of material according to the patient. He denies any postauricular pain or any ear pain at this time. OBJECTIVE: HEENT: The patient is normocephalic. Examination of the left ear is unremarkable. Right ear again reveals no swelling of the ear canal in the area of the meatus. Palpation of the tragus and postauricular deep palpation is negative for any tenderness. Inspection of the external auditory canal using the otoscope, which is nontender to insertion, reveals the patient has some dried purulent material and waxy debris in the canal. This is obscuring visualization of most of the tympanic membrane. The vast majority of the swelling of the soft tissues of the canal skin has resolved. The remainder of the exam is unchanged since his last progress note. ASSESSMENT: 1. Right malignant external otitis 2. Severe right external otitis 3. Right otalgia 4. Right otorrhea 5. Bilateral sensorineural hearing loss 6. T ype 2 diabetes mellitus. PLAN: As I discussed in my progress note yesterday, since the patient has improved, I feel that it is safe to send him home on oral antibiotics. We will send him home on Cipro tablets 750 mg p.o. b.i.d. for a 14-day period, a total of 28 tablets. He will take this medication twice daily after food. In addition, he will continue using the Ciprodex suspension that was given to him while he was in the hospital. He is to place 4 drops in the right ear 3 times a day (after breakfast, dinner, and before going to bed) until the medication is completely gone. He will be given a prescription also for a pain medication, [place] 5/325, #30, which he can take q.4 hours p.r.n. for pain. I have advised the patient to call my office on Friday on 04/01/2022, and schedule an appointment for next Friday(04/02/22). I advised the patient at that time I will clean all of the debris out of his right ear, so that we can get a better assessment of how he has progressed. At this point, again, I feel he is okay to be discharged home in satisfactory condition. I have given both the patient and his one of my business cards and advised them to call if there are any issues between now and when I see him in my office. CHAI / BRIAN: [id number] / MTDD
== END 2022-03-31 15:53 | disposition home or self-care (01) ==
LOC: EC 01:55 → 6NMEDSUR 05:12
PROVIDERS: ADMIT Internal Medicine; ATTEND Internal Medicine
DX: H60.21 Malignant otitis externa, right ear (principal); H66.91 Otitis media, unspecified, right ear; H90.3 Sensorineural hearing loss, bilateral; E11.42 Type 2 diabetes mellitus with diabetic polyneuropathy; I10 Essential (primary) hypertension; E78.5 Hyperlipidemia, unspecified; K21.9 Gastro-esophageal reflux disease without esophagitis; E78.00 Pure hypercholesterolemia, unspecified; Z79.84 Long term (current) use of oral hypoglycemic drugs; Z97.4 Presence of external hearing-aid; Z79.899 Other long term (current) drug therapy
CPT/HCPCS: 96361 ×2; 96366 ×3; 96367; 96375 ×2; 96376 ×3; 96368; 96365; 99284; 36415; 80053 ×2; 85652; 83735; 84100; 84484; 85025 ×2; 85610; 85730; 86140; 87040; 83036; 70480; G0378 ×3; J2543 ×3; J2270; J1956 ×3; J0131 ×2; J1885 ×3; J1170 ×3

== ENCOUNTER 2022-05-03 13:28 | Emergency (ER) | payer BC ==
[2022-05-03 13:34] VITALS: TEMP 97.9
[2022-05-03] MEDS ORDERED: HYDROmorphone 1 MG/ML 1 ML SYRINGE IVP STA (14:04)
[2022-05-03] MEDS ORDERED: PIPERACILLIN-TAZOBACTAM 3.375 GM in SODIUM CHLORIDE 0.9% 100 ML IVPB STA (14:05)
[2022-05-03] MEDS ORDERED: LEVOFLOXACIN 750MG-D5W PMX 750 MG in DEXTROSE/WATER 1 150ML.BAG IVPB STA (14:05)
--- NOTE | 2022-05-03 14:06 | ED ---
General Adult HPI - General Chief complaint: ENT Stated complaint: ear infection Time Seen by Provider: 05/03/22 13:39 Source: patient, family, RN notes reviewed Mode of arrival: ambulatory Limitations: no limitations - History of Present Illness Initial comments: Patient is a pleasant 56-year-old male presenting to the emergency Department with right ear pain. Symptoms have started in the last 3-4 days. Patient did see Dr. Ferreira as an outpatient. Dr. Fournier did call. I discussed the case with him. He does request patient received one dose of IV Levaquin as well as 1 dose of IV Zosyn. He states following this patient can be discharged. He has set up outpatient follow-up for him in the beginning of the week. Patient states he did have similar symptoms several weeks ago and was in the hospital with IV antibiotics at that time. Patient states he did receive medications from Dr. Ferreira for outpatient treatment including eardrops. Dr. Ferreira states he did start him on Cipro. - Related Data Home Medications Medication Instructions Recorded Confirmed Ascorbic Acid [Vitamin C] 1,000 mg PO DAILY 03/29/22 03/29/22 Cholecalciferol [Vitamin D3 (25 50 mcg PO DAILY 03/29/22 03/29/22 Mcg = 1000 Iu)] Cyanocobalamin (Vitamin B-12) 1,000 mcg PO DAILY 03/29/22 03/29/22 [Vitamin B-12] Glucos Sul 2Kcl/MSM/Chond/C/Mn 1 cap PO DAILY 03/29/22 03/29/22 [Glucosamine Chondroitin Cap] Hydrocortisone Cream 1 applic TOPICAL BID PRN 03/29/22 03/29/22 [Hydrocortisone 1% Cream] Multivitamins, Thera [Multivitamin 1 tab PO DAILY 03/29/22 03/29/22 (formulary)] Omeprazole Magnesium [PriLOSEC OTC] 20 mg PO DAILY 03/29/22 03/29/22 Pregabalin [Lyrica] 50 mg PO BID@1400,2100 03/29/22 03/29/22 Pregabalin [Lyrica] 100 mg PO DAILY@0700 03/29/22 03/29/22 Pyridoxine HCl (Vitamin B6) 100 mg PO DAILY 03/29/22 03/29/22 [Vitamin B-6] Simvastatin [Zocor] 40 mg PO HS 03/29/22 03/29/22 lisinopriL 40 mg PO DAILY 03/29/22 03/29/22 Previous Rx's Medication Instructions Recorded Canagliflozin [Invokana] 100 mg PO DAILY 30 Days #30 tab 03/31/22 Ciprofloxacin HCl [Cipro] 750 mg PO Q12H 14 Days #28 tab 03/31/22 Ciprofloxacin-Dexameth [Ciprodex 4 drops RIGHT EAR TID 14 Days #250 03/31/22 Otic Susp] ml Allergies Allergy/AdvReac Type Severity Reaction Status Date / Time No Known Allergies Allergy Verified 03/29/22 11:19 Review of Systems ROS Statement: Those systems with pertinent positive or pertinent negative responses have been documented in the HPI. ROS Other: All systems not noted in ROS Statement are negative. Constitutional: Denies: fever Eyes: Denies: eye pain ENT: Reports: as per HPI, ear pain Respiratory: Denies: cough Cardiovascular: Denies: chest pain Endocrine: Denies: fatigue Gastrointestinal: Denies: abdominal pain Genitourinary: Denies: dysuria Skin: Denies: rash Neurological: Denies: weakness Past Medical History Past Medical History: Diabetes Mellitus, GERD/Reflux, Hyperlipidemia, Hypertension Additional Past Medical History / Comment(s): neuropathy History of Any Multi-Drug Resistant Organisms: None Reported Past Surgical History: No Surgical Hx Reported Past Anesthesia/Blood Transfusion Reactions: No Reported Reaction Past Psychological History: No Psychological Hx Reported Past Alcohol Use History: Daily Past Drug Use History: None Reported General Exam Limitations: no limitations General appearance: alert, in no apparent distress Head exam: Present: normocephalic Eye exam: Present: normal appearance ENT exam: Present: other (Right external canal with swelling and some debris is present. Trace swelling of the pinnae) Neck exam: Present: normal inspection Respiratory exam: Present: normal lung sounds bilaterally Cardiovascular Exam: Present: regular rate, normal rhythm GI/Abdominal exam: Present: soft. Absent: tenderness Extremities exam: Present: normal inspection Neurological exam: Present: alert Psychiatric exam: Present: normal affect, normal mood Skin exam: Present: normal color. Absent: rash Course Vital Signs 05/03/22 13:30 Temperature 97.9 F Pulse Rate 85 Respiratory 16 Rate Blood Pressure 187/82 O2 Sat by Pulse 98 Oximetry Disposition Clinical Impression: Otitis externa Disposition: HOME SELF-CARE Condition: Stable Instructions (If sedation given, give patient instructions): Earache (ED) Additional Instructions: Please follow-up in the week as directed by Dr. Ferreira. Return for fever, increased pain, swelling, redness, worsening or changing symptoms or any other concerns. Prescriptions as directed through Dr. Ferreira. Is patient prescribed a controlled substance at d/c from ED?: No Referrals: Sheridan Avelar, [Primary Care Provider] - 1-2 days Ayaan Ferreira MD [STAFF PHYSICIAN] - 1-2 days Time of Disposition: 14:08
[2022-05-03 15:13] VITALS: RESP 18
[2022-05-03] MEDS ORDERED: HYDROmorphone 0.5 MG/0.5 ML SYRINGE IVP STA (17:36)
[2022-05-03 17:45] VITALS: BP 133/75; PULSE 81
== END 2022-05-03 17:50 | disposition home or self-care (01) ==
LOC: EC 13:28
DX: H60.91 Unspecified otitis externa, right ear (principal); E11.9 Type 2 diabetes mellitus without complications; K21.9 Gastro-esophageal reflux disease without esophagitis; E78.5 Hyperlipidemia, unspecified; I10 Essential (primary) hypertension; Z79.899 Other long term (current) drug therapy
CPT/HCPCS: 99283; 96365; 96366; 96367; 96375; 96376; J2543; J1170 ×2; J1956; 96361